=== PATIENT | male | born 1995 | race Two or more races ===

== ENCOUNTER 2022-01-09 14:42 | Emergency (ER) | payer MEDICAID, OTHER ==
[~2022-01-09] VITALS: Ht 182.9 cm; Wt 98.0 kg
[2022-01-09 16:08] VITALS: BP 130/72
[2022-01-09] MEDS ORDERED: NAPR500T31 PO (17:13)
[2022-01-09] MEDS ORDERED: DOXY100C2 PO (17:13)
== END 2022-01-09 17:18 | disposition home or self-care (01) ==
LOC: ER 14:47
DX: I86.1 Scrotal varices (principal); N45.1 Epididymitis; Z79.2 Long term (current) use of antibiotics; Z79.899 Other long term (current) drug therapy
CPT/HCPCS: 76870